=== PATIENT | female | born 1950 | race Caucasian/White ===

== ENCOUNTER 2025-04-05 13:17 | Emergency (ER) | payer MEDICARE, OTHER, SELFPAY ==
[2025-04-05 13:20] VITALS: BP 129/70
[2025-04-05 13:37] LABS: Urine Character Clear (Clear)
[2025-04-05 13:52] LABS: Urine Squamous Cell >30 /LPF (Few)
[2025-04-05 13:53] LABS: Urine Red Blood Cell 0-2 /HPF (0-2)
[2025-04-05 14:25] VITALS: BP 153/58
--- NOTE | 2025-04-05 15:16 | ED.GENMED ---
History of Present Illness
General
Chief Complaint: Back Pain
Source: patient
Exam Limitations: none
Time Seen by Provider: 04/05/25 14:33
Nursing documentation reviewed up to this point in time: agreed with
History of Present Illness
History of Present Illness:
see MDM
Past History
Past History
ED Past Medical History: GERD, Hypercholesterolemia, Psychiatric and Other (Irritable bowel syndrome, cholelithiasis)
ED Past Surgical History: Appendectomy, Gynecological (Hysterectomy, right breast lumpectomy), Orthopedic (Left wrist) and Tonsilectomy
Social History
Tobacco: Non-smoker
Alcohol: None
Drug: None
Personal:
Living: with family
Employment: Not employed
Family History
Family History: Other (Noncontributory)
Review of Systems
Review of Systems
Allergies reviewed?: Yes
All Other Systems: Not applicable
Phy Exam
Physical Exam
Physical Exam:
GENERAL: Alert , in no apparent distress, comfortable at rest
HEAD: NCAT
NECK: no midline tenderness, active ROM intact, no paraspinal muscle tenderness;
CARDIAC: Regular rate and rhythm, no edema
LUNGS: Clear breath sounds bilaterally, no acute respiratory distress, no wheezes/rales/rhonchi
ABDOMEN: Soft, without focal tenderness, no r/g, no cvat, normal bowel sounds, nondistended
NEUROLOGICAL: Alert and oriented, no focal neuro deficits, CN intact, 5/5 strength, sensation intact, ambulation slight limp left leg
SKIN: Warm and dry, no rash
MUSCULOSKELETAL: No edema, well perfused. Normal inspection of the right hip/leg
Back: No midline tenderness, mild dextroscoliosis,no reproducible back tendrness
negative straight leg raise Bilaterally
PSYCH: Normal and appropriate interaction.
Course
Orders/Labs/Results
Orders:
Orders
04/05/25 13:30
Urinalysis Reflex To Culture Urgent
Date Specimen was Collected: 04/05/25
Time Specimen was Collected: 13:23
Urine Microscopic Reflex Cult Urgent
Urine Culture Urgent
CARLITOS Source: U
Specimen Description:
Date Specimen was Collected: 04/05/25
Time Specimen was Collected: 13:23
04/05/25 14:59
Electrocardiogram (*1) Stat
Reason for Study: Other
Other Reason for Exam: r/o kidney stone
EKG- Treatment ONCE
04/05/25 15:00
CT Abd/Pel (IV only)-DH only Urgent
Comment:
Reason For Exam: severe back pain
04/05/25 15:06
Complete Blood Count/With Diff Urgent
Comprehensive Metabolic Panel Urgent
Lipase Urgent
04/05/25 15:10
Troponin I Urgent
04/05/25 15:16
Morphine Sulfate 2 mg IV NOW STA
Ondansetron Injectable [Zofran] 4 mg IV NOW STA
04/05/25 19:15
Amoxicillin 875 mg/Clav 125 mg [Augmentin 875 mg/125 mg] 1 tablet PO NOW STA
04/05/25 19:28
Ketorolac [Toradol] 15 mg IV NOW STA
Abnormal Lab Results
04/05/25 04/05/25
13:30 15:06
RDW 14.6 H %
(11.5-14.5)
Abs Immat Gran (auto) 0.1 H 10^3/uL
(0-0.05)
Absolute Monos (auto) 0.7 H 10^3/uL
(0.1-0.6)
Immature Gran % 0.7 H %
(0-0.5)
BUN 28 H mg/dl
(7-17)
Creatinine 1.1 H mg/dL
(0.6-1.0)
Calcium 10.4 H mg/dl
(8.4-10.2)
AST 52 H U/L
(14-36)
ALT 89 H U/L
(0-35)
Leukocyte Esterase Rfl 1+ A
(Negative)
Urine Bacteria (Reflex) Few A
(Negative)
Urine Albumin (Reflex) 1+ A
(Neg - Trace)
04/05/25 15:06
04/05/25 15:06
Vital Signs
Initial and Last Documented VS:
Initial Vital Signs
Temp Pulse Resp BP Pulse Ox
36.8 C 68 18 129/70 98
04/05/25 13:20 04/05/25 13:20 04/05/25 13:20 04/05/25 13:20 04/05/25 13:20
Last Documented Vital Signs
Temp Pulse Resp BP Pulse Ox
36.8 C 65 16 150/66 96
04/05/25 13:20 04/05/25 17:00 04/05/25 18:00 04/05/25 17:00 04/05/25 17:00
MDM/Problems Addressed
Differential Diagnosis Includes:
see MDM
MDM/Problems Addressed:
Note:
CHIEF COMPLAINT(S)
Severe intermittent back pain
HISTORY OF PRESENT ILLNESS
The patient is a 75-year-old female who presents with severe intermittent pain in the lower back that began a few days ago, coming and going spontaneously The pain is described as a 'horrible pain' and has been likened to labor pain, with episodes
so severe that the patient was 'screaming.' The pain comes and goes, described as a contraction but localized to a specific spot in the lower back, without radiation around the abdomen. The patient reports that the pain is not associated with
movement, breathing, or changes in position; however, lying on her back exacerbates it.
The patient mentions having urgency in urination for about a year, for which she has been treated with solifenacin but with minimal improvement. She visited her urologist recently, but the back pain was not present during that visit. There is no
history of kidney stones or urinary tract infections.
The patient initiated Manjaro for weight loss approximately ten days ago and has taken two doses without gastrointestinal side effects. She denies any vomiting or diarrhea. The patient also expresses that she has been diagnosed with borderline
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
ADDITIONAL HISTORY OBTAINED FROM SOURCES OTHER THAN THE PATIENT
The patients family member provided information that she missed an appointment with her urologist but recently attended a follow-up for her urinary issues.
CHRONIC MEDICAL CONDITIONS SIGNIFICANTLY AFFECTING CARE
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
PAST MEDICAL HISTORY
The patient fell approximately three months ago, resulting in a concussion. She has since experienced more significant balance issues and difficulty walking, which have persisted over time. She uses a walker occasionally and has consulted a
neurologist and a physical therapist, yet the cause of her balance issues remains undetermined.
SOCIAL HISTORY
The patient uses solifenacin for urinary symptoms.
PHYSICAL EXAM
- Nursing notes reviewed and vital signs reviewed.
- Lower back: mild R sided lateral upuper lumbarTenderness localized to a specific spot, described by the patient as feeling like a contraction.
GENERAL: Alert , in no apparent distress, comfortable at rest
HEAD: NCAT
NECK: no midline tenderness, active ROM intact, no paraspinal muscle tenderness;
CARDIAC: Regular rate and rhythm, no edema no murmur
LUNGS: Clear breath sounds bilaterally, no acute respiratory distress, no wheezes/rales/rhonchi
ABDOMEN: Soft, without focal tenderness, no r/g, no cvat, normal bowel sounds, nondistended
NEUROLOGICAL: Alert and oriented, no focal neuro deficits, CN intact, 5/5 strength, sensation intact,ambulates noramaly
SKIN: Warm and dry,
MUSCULOSKELETAL: No edema, well perfused.
pt has bruise to R distal middle finger DIP which seems like from trauma/blood blister
no splinter hemorrhages
Patient has no tenderness to palpation of the hip, minimal tenderness in the SI joint
He has no pain with flexion of the left hip, external rotation, but with internal rotation has discomfort
Back: No midline tenderness,mild R sided tendernsss CVA region, no swelling no rashes
negative straight leg raise Bilaterally
PSYCH: Normal and appropriate interaction.
PLAN
1. Conduct blood work to evaluate kidney function before proceeding with imaging studies.
2. Plan for a computed tomography scan of the abdomen with IV contrast, contingent on the results of kidney function tests.
3. Provide pain relief with a small dose of morphine while awaiting diagnostic results.
DIFFERENTIAL DIAGNOSIS
The Differential Diagnosis includes, in no particular order and is not limited to:
1. Kidney stone
2. Renal colic
3. Musculoskeletal back pain
4. Abdominal aortic aneurysm
5. Pyelonephritis
6. Disc herniation
7. Spinal stenosis
8. Lumbar radiculopathy
9. Ureteral obstruction
10. Malignancy
CARE-UPDATE
04/05/25 - 19:28
Patient reports no vomiting and no diarrhea despite starting Manjaro. Mild wall thickening noted in the mid-distal sigmoid colon, with possible diverticulitis unrelated to patients current back pain, which is suspected to be muscular in nature.
Urine sample showed potential contamination due to high squamous cell count; infection presence unclear. Imaging showed kidneys, liver, pancreas, gallbladder, and other abdominal structures appear normal with mild degenerative changes in the lumbar
spine.
The patient was prescribed Augmentin for ct milddiverticulitis, which doesn't totally correlate with symptoms; but she has had some conssitpation; with instructions to stop after seven days if symptoms improve. Administered a small dose of Toradol
for pain management. Patient declined muscle relaxers due to ongoing use of Ativan. Advised to monitor for shingles rash development as a potential differential diagnosis. Recommended Tylenol for additional pain relief if needed. Caution given
regarding potential bruising observed, likely a minor trauma; advised to monitor for worsening symptoms or fever. Follow-up necessary if symptoms escalate or fail to improve.
*Pulse Oximetry
SaO2: 99
Oxygen Mode of Delivery: Room air
Patient hypoxic: no
*Critical Care Note
Total Time (30-74mins, 75-104mins- exclusive of procedures): Not Applicable
ED Attending Note
-
Portions of this chart may have been created with voice recognition software.� Occasional wrong word or��sound alike� substitutions may have occurred due to the inherent limitations of voice recognition software.
Discharge Plan
Departure
Patient Disposition: Home (Routine Discharge)
Date of Disposition: 04/05/25
Time of Disposition: 19:12
Patient with high blood pressure during this ER visit?: Yes
Condition: Fair
Covid-19: Not Applicable
Discharge Problem:
Back pain, Diverticulitis
Instructions: Low Back Pain (DC), Diverticulitis - Discharge instructions
Prescriptions:
New
amoxicillin-pot clavulanate [Augmentin] 500-125 mg tablet
1 tab PO Q12H Qty: 14 0RF
No Action
venlafaxine [Effexor] 100 MG tablet
375 mg PO DAILY
calcium carbonate [Calcium 600] 600 MG tablet
600 mg PO DAILY
lorazepam 0.5 MG tablet
0.5 mg PO DAILY PRN (Reason: anxiety)
Patient Comments:
in morning
lorazepam 2 MG tablet
2 mg PO HS
lorazepam 1 MG tablet
1 mg PO DAILY
Patient Comments:
around noon
lamotrigine 100 MG tablet
100 mg PO DAILY
docosahexaenoic acid-epa 1 CAP capsule
1 cap PO DAILY
zolpidem [Ambien CR] 12.5 MG tablet,ext release multiphase
12.5 mg PO HS
Simvastatin
10 mg PO DAILY
Triavil
1 tab PO DAILY
Patient Comments:
pt does not know dose
Vitamin D
1 tab PO DAILY
Patient Comments:
pt unsure of doseage
rabeprazole [AcipHex] 20 MG tablet,delayed release (DR/EC)
20 mg PO DAILY
venlafaxine 75 MG capsule,extended release 24hr
375 mg PO DAILY 0RF
hydrocodone-acetaminophen 1 TABLET tablet
2 tab PO Q4HPRN PRN (Reason: severe pain when kayce PO well) 3 Days Qty: 18 0RF
lamotrigine 100 MG tablet
100 mg PO HS 0RF
benzocaine-menthol [Cepacol Sore Throat (ezekiel-men)] 1 KARINA lozenge
1 karina PO Q4HPRN PRN (Reason: sore throat) 0RF
Referrals:
Mena Danielson MD [Family Provider, Internal Medicine] - Follow up in 2-3 days
Activity Restrictions/Additional Instructions:
Not really sure the cause of your back pain, you did have some inflammation of your colon which could be diverticulitis. This is something that is usually treated with clear liquids for 24 to 48 hours and antibiotics. Your urine also had some
bacteria which could be the cause of your back pain or this could just be musculoskeletal and these are coincidental findings. Your blood work was reassuring. You have no signs of an abdominal aortic aneurysm. Please take Augmentin twice a day
for 7 days
s and use a clear liquid diet for 24 to 48 hours. For pain you can use Tylenol or ibuprofen. Return to the ER for worsening pain like pain that does not improve, severe pain, fever, bloody diarrhea, vomiting repeatedly, chest pain or shortness of
breath. Otherwise follow-up with your family doctor
Interventions
Interventions:
*Risk Screen - Suicide Last Done: 04/05/25 13:20
*General Assessment Last Done: 04/05/25 14:38
*Neglect/Abuse Screening Last Done: 04/05/25 13:20
*ED- Fall Risk Assessment Last Done: 04/05/25 14:38
*ED COVID-19 Vaccine History Last Done: 04/05/25 14:38
ED-Musculoskeletal Assessment Last Done: 04/05/25 14:38
Discharge Date and Time
Print Language: ANGUILLAN
[2025-04-05 15:20] LABS: Hematocrit 37.1 % (37.0-47.0); Hemoglobin 13.0 g/dL (12.0-16.0); Mean Corp Hgb Conc. 35.0 g/dL (33.0-37.0); Mean Corpuscular Volume 82.8 fL (81.0-99.0); Nucleated Red Blood Cells % 0 %; Platelet Count 211 10^3/uL (130-400); Red Cell Dist. Width 14.6 % (11.5-14.5)
[2025-04-05] MEDS: ZOFRAN 4 MG IV (15:20)
[2025-04-05] MEDS: MORPHINE SULFATE 2 MG IV (15:20)
[2025-04-05 15:36] LABS: ALT (SGPT) 89 U/L (0-35); AST (SGOT) 52 U/L (14-36); Albumin 4.3 g/dl (3.5-5.0); Alkaline Phosphatase 87 U/L (38-126); Blood Urea Nitrogen 28 mg/dl (7-17); Calcium 10.4 mg/dl (8.4-10.2); Carbon Dioxide 27 mmol/L (22-30); Chloride 104 mmol/L (98-107); Glucose 96 mg/dl (70-99); Lipase 74 U/L (23-300); Potassium 4.6 mmol/L (3.5-5.1); Sodium 137 mmol/L (135-145); Total Protein 6.6 g/dl (6.3-8.2); eGFR 52.40
[2025-04-05 15:46] LABS: Troponin I < 0.012 ng/ml
[2025-04-05 15:58] VITALS: BP 159/76
[2025-04-05 17:00] VITALS: BP 150/66
[2025-04-05] MEDS: AUGMENTIN 875 MG/125 MG 1 TABLET PO (19:27)
[2025-04-05] MEDS: TORADOL 15 MG IV (19:30)
== END 2025-04-05 19:20 | disposition home or self-care (01) ==
LOC: EMR 13:17
PROVIDERS: Emergency Medicine; Physician Assistant; EMERGENCY PHYSICIAN Student in an Organized Health Care Education/Training Program; FAMILY PHYSICIAN Internal Medicine
DX: K57.32 Diverticulitis of large intestine without perforation or abscess without bleeding (principal); M54.50 Low back pain, unspecified; E78.00 Pure hypercholesterolemia, unspecified; Z90.49 Acquired absence of other specified parts of digestive tract
CPT/HCPCS: 96374; 96375; 99284; 74177; 80053; 81003; 81015; 83690; 84484; 85025; 87086; 93005; Q9967

== ENCOUNTER 2025-04-09 23:50 | Emergency (ER) | payer MEDICARE, OTHER, SELFPAY ==
[2025-04-10] VITALS (7 sets, daily range): BP systolic 107–143; BP diastolic 57–80; PULSE 77–85; BMI 29.8
[2025-04-10 00:20] LABS: Urine Character Clear (Clear)
--- NOTE | 2025-04-10 01:41 | ED.GENMED ---
History of Present Illness
<Alfredo Madrigal MD, Resident - Last Filed: 04/10/25 05:22>
General
Chief Complaint: Fall
Source: patient and family
Exam Limitations: none
Time Seen by Provider: 04/10/25 01:37
History of Present Illness
History of Present Illness:
This is a 75-year-old female with history of chronic gait disturbance, was following with a vestibular therapist however discontinued 2 weeks ago presenting in the emergency department after she had 2 falls today. Her informed me she had a
fall when she was trying to get out of the bed she landed on her buttocks with her back hitting the nightstand. She did not lose consciousness, did not hit her head. She was able to stand up with the help of her and was able to ambulate
with a walker. They had the dinner she watch the TV and then went to use the bathroom, her found her on the bathroom floor she was unable to get up. There was a small bruise on her face as well. She did not lose consciousness reports that
she did not hit her head however she cannot recall the whole incident and believes that she hit her face on the walker as there is no other explanation of this small abrasion on the face. Her is concerned that she has been having
progressive memory dysfunction lately. Given her history of anxiety and depression she is on multi pill psychotropic medication
Past History
<Alfredo Madrigal MD, Resident - Last Filed: 04/10/25 05:22>
Past History
ED Past Medical History: GERD, Hypercholesterolemia, Psychiatric and Other (Irritable bowel syndrome, cholelithiasis)
ED Past Surgical History: Appendectomy, Gynecological (Hysterectomy, right breast lumpectomy), Orthopedic (Left wrist) and Tonsilectomy
Social History
Tobacco: Non-smoker
Alcohol: None
Drug: None
Personal:
Living: with family
Employment: Not employed
Family History
Family History: Other (Noncontributory)
Review of Systems
<Alfredo Madrigal MD, Resident - Last Filed: 04/10/25 05:22>
Review of Systems
Allergies reviewed?: Yes
All Other Systems: ROS reviewed and negative except as documented in HPI and ROS
Musculoskeletal: Reports back pain
Phy Exam
<Alfredo Madrigal MD, Resident - Last Filed: 04/10/25 05:22>
Physical Exam
Physical Exam:
GENERAL: Alert , in no apparent distress, comfortable at rest
HEAD: NCAT
NECK: no midline tenderness, active ROM intact, no paraspinal muscle tenderness;
CARDIAC: Regular rate and rhythm, no edema
LUNGS: Clear breath sounds bilaterally, no acute respiratory distress, no wheezes/rales/rhonchi
ABDOMEN: Soft, without focal tenderness, no r/g, no cvat, normal bowel sounds, nondistended
NEUROLOGICAL: Alert and oriented, no focal neuro deficits, CN intact, 5/5 strength, sensation intact
SKIN: Warm and dry, no rash, small abrasion on right face lateral to lower lip
MUSCULOSKELETAL: No edema, well perfused.
Back: No midline tenderness, mild dextroscoliosis,mild ttp over right paraspinal in thoracic,
negative straight leg raise Bilaterally
PSYCH: Normal and appropriate interaction.
Course
<Alfredo Madrigal MD, Resident - Last Filed: 04/10/25 05:22>
Orders/Labs/Results
Orders:
Orders
04/10/25 00:05
Urinalysis Reflex To Culture Urgent
Date Specimen was Collected: 04/10/25
Time Specimen was Collected: 00:00
04/10/25 01:37
CBC/With Diff [Complete Blood Count/With Diff] Urgent
Comprehensive Metabolic Panel Urgent
04/10/25 02:08
CT Head W/o Iv Contrast Urgent
Comment:
Reason For Exam: fall
04/10/25 02:59
Orthostatic VS- Treatment ONCE
04/10/25 03:38
0.9% Sodium Chloride 1000 ml [Nss] 1,000 ml IV BOLUS
04/10/25 04:31
Orthostatic VS- Treatment ONCE
04/10/25 04:50
3 Minute Walk Test- Treatment ONCE
Abnormal Lab Results
04/10/25
01:37
WBC 11.2 H 10^3/uL
(4.8-10.8)
Hct 36.1 L %
(37.0-47.0)
Abs Immat Gran (auto) 0.1 H 10^3/uL
(0-0.05)
Absolute Neuts (auto) 9.0 H 10^3/uL
(1.4-6.5)
Absolute Monos (auto) 0.8 H 10^3/uL
(0.1-0.6)
Immature Gran % 0.7 H %
(0-0.5)
Neutrophils % 80.6 H %
(42.2-75.2)
Lymphocytes % 10.8 L %
(20.5-51.1)
BUN 19 H mg/dl
(7-17)
Glucose 102 H mg/dl
(70-99)
AST 59 H U/L
(14-36)
ALT 130 H U/L
(0-35)
04/10/25 01:37
04/10/25 01:37
Vital Signs
Initial and Last Documented VS:
Initial Vital Signs
Temp Pulse Resp BP Pulse Ox
98.4 F 92 16 137/71 96
04/10/25 00:01 04/10/25 00:01 04/10/25 00:01 04/10/25 00:01 04/10/25 00:01
Last Documented Vital Signs
Temp Pulse Resp BP Pulse Ox
98.1 F 85 20 123/65 95
04/10/25 03:49 04/10/25 05:09 04/10/25 05:09 04/10/25 02:00 04/10/25 05:09
<Maite Worrell, DO - Last Filed: 04/10/25 05:44>
Orders/Labs/Results
Orders:
Orders
04/10/25 00:05
Urinalysis Reflex To Culture Urgent
Date Specimen was Collected: 04/10/25
Time Specimen was Collected: 00:00
04/10/25 01:37
CBC/With Diff [Complete Blood Count/With Diff] Urgent
Comprehensive Metabolic Panel Urgent
04/10/25 02:08
CT Head W/o Iv Contrast Urgent
Comment:
Reason For Exam: fall
04/10/25 02:59
Orthostatic VS- Treatment ONCE
04/10/25 03:38
0.9% Sodium Chloride 1000 ml [Nss] 1,000 ml IV BOLUS
04/10/25 04:31
Orthostatic VS- Treatment ONCE
04/10/25 04:50
3 Minute Walk Test- Treatment ONCE
Abnormal Lab Results
04/10/25
01:37
WBC 11.2 H 10^3/uL
(4.8-10.8)
Hct 36.1 L %
(37.0-47.0)
Abs Immat Gran (auto) 0.1 H 10^3/uL
(0-0.05)
Absolute Neuts (auto) 9.0 H 10^3/uL
(1.4-6.5)
Absolute Monos (auto) 0.8 H 10^3/uL
(0.1-0.6)
Immature Gran % 0.7 H %
(0-0.5)
Neutrophils % 80.6 H %
(42.2-75.2)
Lymphocytes % 10.8 L %
(20.5-51.1)
BUN 19 H mg/dl
(7-17)
Glucose 102 H mg/dl
(70-99)
AST 59 H U/L
(14-36)
ALT 130 H U/L
(0-35)
04/10/25 01:37
04/10/25 01:37
Vital Signs
Initial and Last Documented VS:
Initial Vital Signs
Temp Pulse Resp BP Pulse Ox
98.4 F 92 16 137/71 96
04/10/25 00:01 04/10/25 00:01 04/10/25 00:01 04/10/25 00:01 04/10/25 00:01
Last Documented Vital Signs
Temp Pulse Resp BP Pulse Ox
98.1 F 85 20 123/65 95
04/10/25 03:49 04/10/25 05:09 04/10/25 05:09 04/10/25 02:00 04/10/25 05:09
<Alfredo Madrigal MD, Resident - Last Filed: 04/10/25 05:22>
MDM/Problems Addressed
Differential Diagnosis Includes:
muscular pain back vs likely infectious process
MDM/Problems Addressed:
Urinalysis negative
CBC with mild elevation of WBC to 11 point, CMP with mild elevation BUN to 19, AST and ALT elevated(history of chronic elevated AST and ALT)
Will obtain head CT given 2 falls today
update: Was able to go to the bathroom with the help of nurse; denies any lightheadedness.
Check orthostatic
Update: CT with no acute intracranial hemorrhage. No evidence of acute infarct. No calvarial fracture. No mass effect or midline shift.
Orthostatic blood pressure positive
Will give 1 L normal saline bolus
repeat orthostatic + but patient feels significant improvement and offers no complaints.
3-minute walk test was done which patient tolerated without any lightheadedness and complaints..
Shared decision was made with patient and her for discharge home and follow-up with PCP. A prescription for physical therapy was also provided to the patient. Return precautions reviewed they voices understanding and agree with the plan
Chronic conditions affecting care: Psychiatric illness
<Alfredo Madrigal MD, Resident - Last Filed: 04/10/25 05:22>
*Pulse Oximetry
SaO2: 96
Oxygen Mode of Delivery: Room air
Patient hypoxic: no
*Critical Care Note
Total Time (30-74mins, 75-104mins- exclusive of procedures): Not Applicable
ED Attending Note
<Alfredo Madrigal MD, Resident - Last Filed: 04/10/25 05:22>
-
Portions of this chart may have been created with voice recognition software.� Occasional wrong word or��sound alike� substitutions may have occurred due to the inherent limitations of voice recognition software.
<Maite Worrell DO - Last Filed: 04/10/25 05:44>
ED Attending Note
Patient seen and examined by attending physician: Yes
I performed a history and physical exam of patient and discussed management with resident, I reviewed resident's note and agree with documented findings and plan of care.: Yes
ED Attending Note:
75-year-old woman with history of anxiety/depression, remote history of breast cancer over 20 years ago. She also has history of chronic ambulatory dysfunction, ambulates with a walker and has been evaluated by neurologist with last visit 2 months
ago due to gait disorder. She underwent outpatient EEG earlier this week. Results are pending.
She had been undergoing outpatient vestibular physical therapy but due to to lack of dizziness and lack of improvement vestibular therapy was discontinued 2 weeks ago.
She suffered a fall 3 months ago and more recently fell twice today.
First fall today was when she was attempting to get up from a chair, lost her balance. Denies head injury nor loss of consciousness.
She then fell while in the bathroom and found her lying on the floor. Patient states she lost her balance, struck her right painter region on her walker.
She has been having intermittent right mid to low back pain over the past few weeks and was evaluated in this ED 5 days ago. CAT scan showed some constipation as well as concern for mild diverticulitis. Right mid to low back pain has not improved
with course of Augmentin. She continues to deny abdominal pain.
Right back pain is worse with lying supine. No radicular signs or symptoms.
Right back pain has not worsened since suffering 2 falls today.
75-year-old woman appears her stated age. Bright and alert, pleasant, oriented x 3, appears in no acute distress.
She has full recollection of events both recent and more remote. She denies prodromal dizziness nor lightheadedness. Denies loss of consciousness. Has full recall as to the names of her physicians, when she saw her neurologist last, etc. recent
imaging etc.
HEENT: There is a small ecchymotic patch right lateral chin. Minimal local tenderness to palpation. No dental tenderness nor dental injury. Full mandible range of motion without difficulty.
Neck: No midline bony tenderness. Full range of motion without difficulty nor pain. No adenopathy.
Heart is regular rate and rhythm.
Lungs are clear to auscultation. No chest wall tenderness.
Abdomen is soft without appreciable tenderness.
Back: Patient able to sit up without difficulty. No midline bony tenderness. Mild tenderness right thoracolumbar region. Straight leg raising is negative bilaterally.
Extremities: No palpable tenderness. Full range of motion without difficulty nor pain.
Neuro: Awake alert and oriented x 3. No focal neurodeficits. Motor strength is 5/5 bilaterally.
Concern for acute on chronic ambulatory dysfunction. Concern for occult closed head injury, CVA. Orthostasis, arrhythmia are less likely. concerned for possible UTI however patient denies UTI symptoms.
Recent laboratory studies and CT abdomen pelvis from 5 days ago reviewed.
Labs thus far reveal mildly elevated white blood cell count of 11.2.
Chemistries again show minimally elevated LFTs, similar to previous going as far back as 2017.
Urinalysis is unremarkable.
Will check CT of the head. If unremarkable we will attempt ambulation with walker.
05:40
CT of the head is unremarkable.
Orthostatics vital signs are positive, however patient remains asymptomatic with standing. Patient has been given 1 L IV normal saline. Orthostatic vital signs remain mildly positive from lying to sitting, unchanged from sitting to standing. She
remains asymptomatic.
Patient has ambulated in the hallway with a walker with steady unaided gait.
Will discharge to home with recommendation for prompt follow-up with PCP.
Recommend outpatient physical therapy for gait training, strength training.
Discharge Plan
Departure
Patient Disposition: Home (Routine Discharge)
Date of Disposition: 04/10/25
Time of Disposition: 05:19
Patient with high blood pressure during this ER visit?: Yes
Condition: Fair
Discharge Problem:
Ambulatory dysfunction
Instructions: BLOOD PRESSURE
Prescriptions:
No Action
lorazepam 2 MG tablet
2 mg PO HS
lorazepam 1 MG tablet
1 mg PO DAILY
Patient Comments:
around noon
zolpidem [Ambien CR] 12.5 MG tablet,ext release multiphase
12.5 mg PO HS
fluoxetine [Prozac] 40 mg Capsule
40 mg PO DAILY
rabeprazole 20 mg Tablet,Delayed Release (Dr/Ec)
20 mg PO BID
hydroxyzine HCl 25 mg Tablet
25 mg PO 1XD PRN (Reason: anxiety)
fluoxetine [Prozac] 20 mg Capsule
20 mg PO DAILY
solifenacin 5 mg Tablet
5 mg PO DAILY
cholecalciferol (vitamin D3) [Vitamin D3] 25 mcg (1,000 unit) Tablet
25 mcg PO 2XD
venlafaxine 150 mg Tablet Extended Release 24hr
150 mg PO DAILY
lamotrigine 100 MG tablet
300 mg PO HS
Referrals:
Mena Danielson MD [Family Provider, Internal Medicine] - Follow up in 1 week
Activity Restrictions/Additional Instructions:
You were seen at the [facility] emergency department with concerns of frequent falls. We did blood work including complete blood count, complete metabolic panel, urinalysis. Your blood work was positive for slight elevation of BUN, slight
elevation of blood glucose, elevated AST and ALT which apparently are chronically elevated. Slight elevation in WBC count of 11.2. Urine was clean head CT was without any acute intracranial abnormality. You had positive Ortho static vitals during
your stay at the hospital you received 1 L of normal saline bolus. You passed your 3-minute walk test. if you develop any worsening of the current symptoms or any worrisome concern please return to the emergency. Prescription for physical therapy
was also provided with discharge paperwork. please follow-up with your family doctor for further evaluation and recommendations.
Interventions
Interventions:
*Risk Screen - Suicide Last Done: 04/10/25 00:01
*General Assessment Last Done: 04/10/25 00:01
*Neglect/Abuse Screening Last Done: 04/10/25 00:01
*ED- Fall Risk Assessment Last Done: 04/10/25 01:26
*ED COVID-19 Vaccine History Last Done: 04/10/25 01:26
ED-Musculoskeletal Assessment Last Done: 04/10/25 01:30
ED- Neurological Assessment Last Done: 04/10/25 03:22
ED-Skin Assessment Last Done: 04/10/25 03:22
Discharge Date and Time
Print Language: TONGAN
[2025-04-10 01:42] LABS: Hematocrit 36.1 % (37.0-47.0); Hemoglobin 12.9 g/dL (12.0-16.0); Mean Corp Hgb Conc. 35.7 g/dL (33.0-37.0); Mean Corpuscular Volume 81.1 fL (81.0-99.0); Nucleated Red Blood Cells % 0 %; Platelet Count 205 10^3/uL (130-400); Red Cell Dist. Width 14.4 % (11.5-14.5)
[2025-04-10 02:02] LABS: ALT (SGPT) 130 U/L (0-35); AST (SGOT) 59 U/L (14-36); Albumin 4.3 g/dl (3.5-5.0); Alkaline Phosphatase 108 U/L (38-126); Blood Urea Nitrogen 19 mg/dl (7-17); Calcium 9.4 mg/dl (8.4-10.2); Carbon Dioxide 26 mmol/L (22-30); Chloride 101 mmol/L (98-107); Estimated Creatinine Clearance 46 ml/min; Glucose 102 mg/dl (70-99); Potassium 4.1 mmol/L (3.5-5.1); Sodium 136 mmol/L (135-145); Total Protein 6.8 g/dl (6.3-8.2); eGFR 58.75
[2025-04-10] MEDS: NSS 1000 IV (03:45)
== END 2025-04-10 05:40 | disposition home or self-care (01) ==
LOC: EMR 23:50
PROVIDERS: EMERGENCY PHYSICIAN Emergency Medicine; FAMILY PHYSICIAN Internal Medicine
DX: R26.2 Difficulty in walking, not elsewhere classified (principal); S00.83XA Contusion of other part of head, initial encounter; W06.XXXA Fall from bed, initial encounter; R03.0 Elevated blood-pressure reading, without diagnosis of hypertension; F32.A Depression, unspecified; F41.9 Anxiety disorder, unspecified
CPT/HCPCS: 99285; 96360; 70450; 80053; 81003; 85025